=== PATIENT | male | born 1995 | race Caucasian/White ===

== ENCOUNTER 2020-10-07 00:18 | Emergency (ER) | payer SELFPAY ==
[2020-10-07 00:35] VITALS: BP 159/75; PULSE 58; RESP 14; TEMP 36.2; O2SAT 98; BMI 30.8
--- NOTE | 2020-10-07 00:40 | ED.DENTAL ---
HPI - Dental/Oral General Chief complaint: Dental/Oral Stated complaint: tooth pain Time Seen by Provider: 10/07/20 00:39 Source: patient Mode of arrival: ambulatory Limitations: no limitations History of Present Illness HPI Narrative: patient is a 25-year-old male with no significant past medical history who presents with left sided dental pain and swelling x1 week that got worse today. He states he does not see a doctor regularly. He denies any fevers. he did not try to take any medications to make it better. Related Data Previous Rx's Medication Instructions Recorded amoxicillin-pot clavulanate 1 tab PO Q12H 10 Days #20 tab 10/07/20 [Augmentin] oxycodone-acetaminophen [Percocet] 1 tab PO Q6H PRN #5 tab 10/07/20 Allergies Allergy/AdvReac Type Severity Reaction Status Date / Time No Known Allergies Allergy Verified 10/07/20 00:38 Review of Systems Review of Systems: Yes all other systems are reviewed and are negative Physical Exam Vital Signs: Vital Signs: Last Vital Signs Temp 97.1 F 10/07/20 00:35 Pulse 58 10/07/20 00:35 Resp 14 10/07/20 00:35 BP 159/75 H 10/07/20 00:35 Pulse Ox 98 10/07/20 00:35 Body Mass Index 30.8 Const: General: cooperative, healthy appearing, comfortable and no acute distress Nutritional Appearance: average body habitus Orientation/consciousness: patient oriented x3 HENMT: Head: Yes normal to inspection General nose exam: Normal external nose present Face and sinus: No normal facial exam ( Left lower jaw swelling, slightly TTP, ) Face images: 1. hardened area, swollen Mouth: Normal oral and palatal mucosa present, lip normal, tongue normal, oropharynx normal, moist mucous membranes, No mouth trauma, no muffled voice and no trismus Teeth and gingiva: dentition normal and gingiva abnormal (lower left side into cheek/jaw) edematous Throat: Yes posterior oropharynx normal, Yes tonsils normal and Yes uvula midline Skin: General skin exam: no rashes or lesions noted Neuro: General: patient oriented x3 Course Course Course Narrative: mouth infection, will give 1st dose of antibiotics now Discharge Plan Discharge Clinical Impression: Gingival abscess Patient Disposition: Home, Self-Care Instructions: Gingivostomatitis (ED) Additional Instructions: as discussed, please be sure to do warm salt water rinses in your my several times daily. Please also take the antibiotic I have prescribed for you to clear up the infection, you may also take the pain medication as needed, just be sure not to drink alcohol or drive a motor vehicle when you are taking the medication. Please be sure to follow-up with a dentist. is important to see a dentist twice annually to maintain good dentition. Prescriptions: New oxycodone-acetaminophen [Percocet] 5-325 mg tablet 1 tab PO Q6H PRN (Reason: pain) Qty: 5 RF: 0 amoxicillin-pot clavulanate [Augmentin] 875-125 mg tablet 1 tab PO Q12H 10 Days Qty: 20 RF: 0
== END 2020-10-07 01:30 | disposition home or self-care (01) ==
PROVIDERS: Emergency Provider Student in an Organized Health Care Education/Training Program
DX: K05.319 Chronic periodontitis, localized, unspecified severity (principal)
CPT/HCPCS: 99283

== ENCOUNTER 2022-05-26 09:34 | Emergency (ER) | payer OTHER, SELFPAY ==
--- NOTE | ~2022-05-26 | XR_ITS ---
EXAMINATION: XR LUMBOSACRAL SPINE CLINICAL INFORMATION: Back pain COMPARISON: None TECHNIQUE: Three views of the lumbosacral spine. FINDINGS: 5 nonrib-bearing lumbar type vertebral bodies. Mild retrolisthesis of L5 on S1. Vertebral body heights are maintained. No acute fracture. Disc spaces are maintained.. SI joints are intact. No abnormal soft tissue calcification. XR/XR lumbar spine 2-3V IMPRESSION: Mild retrolisthesis of L5 on S1. No evidence of acute osseous abnormality.
[2022-05-26 09:41] VITALS: BP 130/70; PULSE 70; O2SAT 98
[2022-05-26 09:44] VITALS: BP 130/72; PULSE 70; RESP 16; TEMP 36.6; O2SAT 98; BMI 31.5
--- NOTE | 2022-05-26 09:46 | ED_ITS ---
HPI - Back Pain/Injury General Chief Complaint: Back Pain/Injury Stated Complaint: Low back pain per EMS Time Seen by Provider: 05/26/22 09:40 Source: patient and EMS Mode of arrival: EMS Limitations: no limitations History of Present Illness HPI Narrative: back pain X 24 ,states [place] Yesterday had cough spell since then c/o lower back pain,no radiation to legs MD elicited complaint: back pain Pertinent past history: other (back pain) Onset (ago): day(s) (1) Timing: constant Severity: moderate Similar Symptoms Previously: No Quality: aching Location: lumbar spine Radiation: none Exacerbating factors: none Relieving factors: none Related Data Previous Rx's Medication Instructions Recorded amoxicillin 875 mg-potassium 1 tab PO Q12H 10 days #20 tabs 10/07/20 clavulanate 125 mg tablet (Augmentin) oxycodone-acetaminophen 5 mg-325 1 tab PO Q6H PRN pain #5 tabs 10/07/20 mg tablet (Percocet) naproxen 500 mg tablet (Naprosyn) 500 mg PO BID PRN PAIN #20 tabs 05/26/22 oxycodone 5 mg capsule 5 mg PO Q8H PRN pain #12 caps 05/26/22 Allergies Allergy/AdvReac Type Severity Reaction Status Date / Time No Known Allergies Allergy Verified 10/07/20 00:38 Review of Systems Constitutional: Constitutional: Reports no additional constitutional complaints ENT: Reports system reviewed and no additional complaints, except as documented Gastrointestinal: Gastrointestinal: Reports no additional gastrointestinal complaints Hematologic/Lymphatic: Hematologic/Lymphatic: Reports no additional hematologic/lymphatic complaints PMFSH Past Medical History [facility] Narrative: none Social History Social History Smoked in Last 30 Days: No Use of substances other than those prescribed or required for medical reasons: No Advance Directives: No Advance Directives Information Provided: No Physical Exam Vital Signs: Vital Signs: Last Vital Signs Temp 98.5 F 05/26/22 11:02 Pulse 71 05/26/22 11:02 Resp 16 05/26/22 11:02 BP 124/74 05/26/22 11:02 Pulse Ox 100 05/26/22 11:02 O2 Del Method 05/26/22 11:02 BMI result Body Mass Index 31.5 Const: General: cooperative Nutritional Appearance: well nourished Orientation/consciousness: oriented to time Limitations: no limitations HEENT: Head: Yes normal to inspection Ears: hearing grossly normal b ilaterally Face and sinus: Yes normal facial exam Mouth: Normal oral and palatal mucosa present Neck: Neck: Yes normal visual inspection Chest: Chest palpation & inspection: normal inspection of the chest Resp: Effort & Inspection: normal respiratory effort and able to speak in complete sentences Auscultation: clear to auscultation bilaterally Cardio: Palpation: normal PMI Rate: regular rate Rhythm: regular rhythm GI: Inspection: Yes normal to inspection Palpation (GI): Soft to palpation, not firm, nontender and no guarding Back/Spine/Pelvis: Other: Tenderness in the LS spine present Skin: General skin exam: no rashes or lesions noted, elasticity normal and turgor normal Lesions: no lesions Rashes: no rashes Neuro: General: oriented to time Course Reevaluation(s) Reevaluation #1: doing better able to ambulate Time: 12:20 Medications Administered Discontinued Medications Generic Name Dose Route Start Last Admin Trade Name Abe PRN Reason Stop Dose Admin Diazepam 5 mg 05/26/22 10:50 05/26/22 10:59 Diazepam 2 Mg Tablet PO 05/26/22 10:51 5 mg ONCE ONE Administration Hydromorphone HCl 0.5 mg 05/26/22 09:43 05/26/22 09:57 Hydromorphone Hcl 0.5 Mg/0.5 Ml Syringe IVPUSH 05/26/22 09:44 0.5 mg ONCE ONE Administration Protocol Hydromorphone HCl 0.5 mg 05/26/22 12:04 05/26/22 12:19 Hydromorphone Hcl 0.5 Mg/0.5 Ml Syringe IVPUSH 05/26/22 12:05 0.5 mg ONCE ONE Administration Protocol Ketorolac Tromethamine 30 mg 05/26/22 09:44 05/26/22 09:56 Ketorolac Tromethamine 30 Mg/Ml Vial IVPUSH 05/26/22 09:45 30 mg ONCE ONE Administration Lidocaine 1 patch 05/26/22 10:50 05/26/22 11:00 Lidocaine 4 % Patch Adh..Patch TRANSDERMA 05/26/22 10:51 1 patch ONCE ONE Administration Protocol Medical Decision Making Medical Decision Making MDM Narrative: Patient presented with 24 hours history of lower back pain neurologically intact will provide the pain medicine will do labs x-ray and reassess Differential Diagnosis Differential Diagnoses: The differential diagnosis associated with the pre sentation includes Admission/Observation Consideration of admission/observation: Escalation of care including admission/observation considered Lab Data [facility] Lab Attestation statement: I reviewed the patient's lab results. 05/26/22 09:53 05/26/22 09:53 Labs: Lab Results 05/26/22 05/26/22 Range/Units 09:53 09:53 WBC 10.3 (4.8-10.8) X10*3/uL RBC 4.42 L (4.60-5.80) X10*6/uL Hgb 13.6 L (14.0-18.0) g/dl Hct 40.2 L (42.0-52.0) % MCV 91.0 (80.0-98.0) fL MCH 30.8 (27.0-33.0) pg MCHC 33.8 (31.0-36.0) g/dl RDW 12.0 (11.0-16.0) % Plt Count 233 (160-400) X10*3/uL MPV 9.7 (9.4-12.4) fL Immature Gran % (Auto) 0.2 (0.0-0.4) % Neut % (Auto) 66.6 (45-73) % Lymph % (Auto) 24.6 (20-40) % [place] % (Auto) 8.0 (2-11) % Eos % (Auto) 0.4 (0-4) % Baso % (Auto) 0.2 (0-2) % Lymph # (Auto) 2.5 (1.2-4.9) X10*3/uL [place] # (Auto) 0.8 (0.1-1.2) X10*3/uL Eos # (Auto) 0.0 (0.0-0.4) X10*3/uL Baso # (Auto) 0.0 (0.0-0.2) X10*3/uL Abs Immat Gran (auto) 0.02 (0.00-0.03) X10*3/uL Absolute Neuts (auto) 6.9 (2.0-8.3) x10*3/uL Absolute Nucleated RBC 0.000 (0.0-0.012) X10*3/uL Nucleated RBC % (auto) 0.0 (0.0-0.2) /100WBC Sodium 140 (135-145) mmol/L Potassium 3.6 (3.3-5.1) mmol/L Chloride 106 (96-108) mmol/L Carbon Dioxide 22 (22-29) mmol/L Anion Gap 16 (12-20) BUN 11 (9-16) mg/dL Creatinine 0.78 (0.5-1.4) mg/dL Estim Creat Clear Calc 168.4 Estimated GFR > 60 Random Glucose 81 (60-115) mg/dL Calcium 9.2 (8.4-10.2) mg/dL Total Bilirubin 1.9 H (0.0-1.0) mg/dL AST 19 (5-37) U/L ALT 25 (0-40) U/L Alkaline Phosphatase 40 (39-117) U/L Total Protein 7.0 (6.5-8.0) g/dL Albumin 4.2 (3.5-5.0) g/dL Independent Interpretation I performed an independent interpretation of an: Plain X-Ray Interpretation: no fx Radiology Impression Discussion of test interpretation with radiology: I have reviewed the radiologist's reading. Radiologist Impression: EXAMINATION: XR LUMBOSACRAL SPINE CLINICAL INFORMATION: Back pain COMPARISON: None TECHNIQUE: Three views of the lumbosacral spine. FINDINGS: 5 nonrib-bearing lumbar type vertebral bodies. Mild retrolisthesis of L5 on S1. Vertebral body heights are maintained. No acute fracture. Disc spaces are maintained.. SI joints are intact. No abnormal soft tissue calcification. XR/XR lumbar spine 2-3V IMPRESSION: Mild retrolisthesis of L5 on S1. No evidence of acute osseous abnormality. Dictated By: Javad Erickson MD Signed By: <Electronically signed by Javad Erickson MD in OV> 05/26/22 2711 Independent Historian Clinical information obtained from an independent historian. History obtained from or confirmed by: Other (mother) Discharge Plan Discharge Clinical Impression: Strain of lumbar region, Back pain Patient Disposition: Home, Self-Care Instructions: Acute Low Back Pain (ED), Back Pain (ED), Lower Back Exercises (ED) Additional Instructions: Return to the emergency room if you worse severe weakness or numbness in the legs follow-up with your primary care physician, if you now one call [place] [facility] [phone]. Prescriptions: New oxycodone 5 mg capsule 5 mg PO Q8H PRN (Reason: pain) Qty: 12 0RF Rx Instructions: Partial Fill upon patient request. naproxen [Naprosyn] 500 mg tablet 500 mg PO BID PRN (Reason: PAIN) Qty: 20 0RF No Action oxycodone-acetaminophen [Percocet] 5-325 mg tablet 1 tab PO Q6H PRN (Reason: pain) Qty: 5 0RF amoxicillin-pot clavulanate [Augmentin] 875-125 mg tablet 1 tab PO Q12H 10 Days Qty: 20 0RF Stand Alone Forms: Work/School Release
[2022-05-26] MEDS: Ketorolac Tromethamine 30 MG/ML VIAL IVPUSH (09:56)
[2022-05-26] MEDS: HYDROmorphone HCl 0.5 MG/0.5 ML SYRINGE IVPUSH ×2 (09:57→12:19)
[2022-05-26 09:58] LABS: MANUAL DIFF FLAG NO
[2022-05-26 10:01] LABS: Basophils Percent Auto 0.2 % (0-2); Eosinophils Percent Auto 0.4 % (0-4); Hematocrit 40.2 % (42.0-52.0); Hemoglobin 13.6 g/dl (14.0-18.0); Imm Gran Abs Auto 0.02 X10*3/uL (0.00-0.03); Imm Gran Pct Auto 0.2 % (0.0-0.4); Lymphocytes Absolute Auto 2.5 X10*3/uL (1.2-4.9); Lymphocytes Percent Auto 24.6 % (20-40); Mean Corpuscular HGB Conc 33.8 g/dl (31.0-36.0); Mean Corpuscular Hemoglobin 30.8 pg (27.0-33.0); Mean Platelet Volume 9.7 fL (9.4-12.4); Monocytes Absolute Auto 0.8 X10*3/uL (0.1-1.2); Neutrophils Absolute Auto 6.9 x10*3/uL (2.0-8.3); Neutrophils Percent Auto 66.6 % (45-73); Platelet Count 233 X10*3/uL (160-400); Red Blood Count 4.42 X10*6/uL (4.60-5.80); White Blood Count 10.3 X10*3/uL (4.8-10.8)
[2022-05-26 10:17] LABS: Alanine Aminotransferase 25 U/L (0-40); Albumin Level 4.2 g/dL (3.5-5.0); Alkaline Phosphatase 40 U/L (39-117); Anion Gap 16 (12-20); Aspartate Amino Transferase 19 U/L (5-37); Bilirubin Total 1.9 mg/dL (0.0-1.0); Blood Urea Nitrogen 11 mg/dL (9-16); Calcium 9.2 mg/dL (8.4-10.2); Carbon Dioxide 22 mmol/L (22-29); Chloride 106 mmol/L (96-108); Creatinine Clr Calc Pharmacy 168.4; Estimated Glomerular Filt Rate > 60; Glucose Random 81 mg/dL (60-115); Potassium 3.6 mmol/L (3.3-5.1); Sodium 140 mmol/L (135-145)
[2022-05-26] MEDS: diazePAM 2 MG TABLET 5 MG PO (10:59)
[2022-05-26] MEDS: Lidocaine 4 % Patch ADH..PATCH 1 PATCH TRANSDERMA (11:00)
[2022-05-26 11:02] VITALS: BP 124/74; PULSE 71; RESP 16; TEMP 36.9; O2SAT 100
--- NOTE | 2022-05-26 11:55 | PC.NURSE ---
PT APPEARS TO BE BETTER AFTER MEDICATIONS, ABLE TO SLOWLY CHANGE POSITIONS INDEPENDENTLY WITH NO CHANGES IN VS. STATES HE IS MOVING BETTER THEN WHEN HE CAME IN.
== END 2022-05-26 12:29 | disposition home or self-care (01) ==
PROVIDERS: Emergency Provider Emergency Medicine
DX: S39.012A Strain of muscle, fascia and tendon of lower back, initial encounter (principal); X50.9XXA Other and unspecified overexertion or strenuous movements or postures, initial encounter; R05.9 Cough, unspecified; Y93.9 Activity, unspecified; Y92.019 Unspecified place in single-family (private) house as the place of occurrence of the external cause; Y99.9 Unspecified external cause status
CPT/HCPCS: 36415; 72100; 80053; 85025; 96374; 96375; 96376; 99284; J1170; J1885

== ENCOUNTER 2022-06-08 16:08 | Emergency (ER) | payer MEDICAID, SELFPAY ==
--- NOTE | ~2022-06-08 | CT_ITS ---
EXAMINATION: CT ABDOMEN AND PELVIS WITHOUT CONTRAST CLINICAL INFORMATION: Left flank pain. Left groin pain COMPARISON: None TECHNIQUE: Multidetector volumetric imaging was performed from the superior aspect of the liver through the pubic symphysis. Sagittal and coronal reformatted images were obtained on the technologist's workstation. This CT examination was performed using dose optimization techniques as appropriate, variously including the following: *Automated exposure control *Adjustment of mA and/or kV according to patient size (this includes techniques or standardized protocols for targeted exams where dose is matched to indication/reason for exam; i.e. extremities or head) *Use of iterative reconstruction technique DLP: 630 mGy-cm FINDINGS: LUNG BASES: No suspicious abnormality in the visualized lower chest LIVER, GALLBLADDER, AND BILIARY TREE: The liver contour is smooth. There is a probable 1.2 cm round low attenuating lesion in the region of hepatic segment 5. In the absence of a known primary malignancy or underlying chronic liver disease this does not require any further evaluation. The gallbladder is contracted. There is no opaque gallstone or biliary dilation. PANCREAS: The pancreas is top normal without localized. Stranding or ductal dilation SPLEEN: Normal ADRENAL GLANDS: Normal KIDNEYS AND URETERS: There is no dilation of the urinary collecting system on either side. No suspicious mass. No perinephric stranding. There is no definite opaque urinary calculus. BLADDER: The bladder is nearly empty. No suspicious abnormality. GASTROINTESTINAL TRACT: There is no localized colonic wall thickening. The appendix contains gas. The tip of the appendix is top normal without surrounding stranding or fluid No significant small bowel dilation. Some of the jejunal loops are top normal. No suspicious abnormality of the stomach which is distended with food. ABDOMINAL WALL: No significant hernia is appreciated. LYMPH NODES: There are no measurably enlarged abdominal or pelvic lymph nodes. There are a few scattered nonspecific retroperitoneal lymph nodes. No significant free intraperitoneal fluid VASCULAR: There is no abdominal aortic aneurysm. PELVIC VISCERA: No suspicious abnormality OSSEOUS STRUCTURES: No suspicious abnormality CT/CT abdomen pelvis wo IV con IMPRESSION: No etiology for left flank pain demonstrated. Specifically there is no opaque urinary calculus or dilation of the urinary collecting system. Fleischner guidelines were followed.
[2022-06-08 16:25] VITALS: BP 119/59; PULSE 88; RESP 16; TEMP 35.7; O2SAT 98; BMI 32.3
--- NOTE | 2022-06-08 16:25 | ED_ITS ---
HPI - Abdominal Pain General Chief Complaint: Abdominal Pain <Porsha Barnes CNP - Last Filed: 06/08/22 16:33> Stated Complaint: Flank pain <Porsha Barnes CNP - Last Filed: 06/08/22 16:33> Time Seen by Provider: 06/08/22 22:21 <Porsha Barnes CNP - Last Filed: 06/08/22 16:33> Source: patient <Milady Ly MD - Last Filed: 06/08/22 23:10> Mode of arrival: ambulatory <Milady Ly MD - Last Filed: 06/08/22 23:10> History of Present Illness HPI narrative: 27-year-old male who injured his left back a couple of weeks ago comes in with left flank pain that he states was radiating into his groin area but not associated with any fever, chills, nausea, vomiting and denies any urinary symptoms. He does cite family history kidney stones. <Milady Ly MD - Last Filed: 06/08/22 23:10> Related Data Home Medications: Previous Rx's Medication Instructions Recorded amoxicillin 875 mg-potassium 1 tab PO Q12H 10 days #20 tabs 10/07/20 clavulanate 125 mg tablet (Augmentin) oxycodone-acetaminophen 5 mg-325 1 tab PO Q6H PRN pain #5 tabs 10/07/20 mg tablet (Percocet) naproxen 500 mg tablet (Naprosyn) 500 mg PO BID PRN PAIN #20 tabs 05/26/22 oxycodone 5 mg capsule 5 mg PO Q8H PRN pain #12 caps 05/26/22 <Porsha Barnes CNP - Last Filed: 06/08/22 16:33> Allergies/Adverse Reactions: Allergies Allergy/AdvReac Type Severity Reaction Status Date / Time No Known Allergies Allergy Verified 10/07/20 00:38 <Porsha Barnes CNP - Last Filed: 06/08/22 16:33> Review of Systems Review of Systems Pertinent positives and negatives as stated in HPI <Milady Ly MD - Last Filed: 06/08/22 23:10> PMFSH Past Medical History Source: nursing notes reviewed <Milady Ly MD - Last Filed: 06/08/22 23:10> Social History Social History: Social History Advance Directives: No Advance Directives Information Provided: No <Porsha Richards MIGUE Barnes - Last Filed: 06/08/22 16:33> Physical Exam ED Vital Signs: Vital Signs - 24 hr 06/08/22 16:25 06/08/22 21:32 Temperature 96.2 F L 97.5 F Pulse Rate 88 65 Respiratory Rate 16 18 Blood Pressure 119/59 L 114/55 L Pulse Oximetry 98 98 Oxygen Delivery Method Room Air Room Air BMI result Body Mass Index 32.3 <Porsha BrownMIGUE chapman - Last Filed: 06/08/22 16:33> Vital Signs - 24 hr 06/08/22 16:25 06/08/22 21:32 Temperature 96.2 F L 97.5 F Pulse Rate 88 65 Respiratory Rate 16 18 Blood Pressure 119/59 L 114/55 L Pulse Oximetry 98 98 Oxygen Delivery Method Room Air Room Air BMI result Body Mass Index 32.3 VITAL SIGNS: Reviewed. GENERAL: Well developed, well nourished, in no acute distress. HEAD: Normocephalic/atraumatic EYES: PERRLA, EOMI LUNGS: Normal breath sounds. No adventitious sounds or accessory muscle use. SpO2<98> CARDIOVASCULAR: Regular rate and rhythm without noted murmurs ABDOMEN: Soft, non-tender, non-distended with bowel sounds, no CVA tenderness MUSCULOSKELETAL: No tenderness, deformities, or effusions noted on gross inspection. EXTREMITIES: No cyanosis, clubbing or edema. SKIN: Inspection of the skin reveals no rashes NEUROLOGIC: Alert and oriented x 4. Strength and sensation to light touch were grossly intact x 4. <Milady Ly MD - Last Filed: 06/08/22 23:10> Course Course Course Narrative: This is an RME: Additional HPI, ROS, PE not included below will be deferred to primary provider. Patient is a 27-year-old male presents emergency department for evaluation of left flank/ back pain. States 05/26 he was in ED for back pain, had an XR obtained that he states was normal, received RX for naproxen oxycodone this helped initially. Went to urgent care 06/02 because he was experiencing groin and testicular pain and pain to L flank/ ABD, he was advised to come to the ED given family history of renal calculi. He thought he would wait this out at home and see how things were going. However, as of yesterday pain seemed more for severe, it is felt to the left flank wrapping around his side, and in the left lower quadrant ABD. Denies dysuria, however when he is urinating he does feel a pressure within the groin. Denies hematuria, nausea, vomiting, fevers, chills. Plan: Labs, urinalysis, CT abdomen and pelvis <Porsha Barnes CNP - Last Filed: 06/08/22 16:33> Medical Decision Making Medical Decision Making MDM Narrative: 27-year-old male with history and clinical presentation after review of all investigations my interpretation is this is musculoskeletal in nature, patient was continued on analgesics and a lidocaine patch here in the emergency room, given results and discharged home in stable condition with regimen of analgesics and instructions follow-up with primary care provider. <Milady Ly MD - Last Filed: 06/08/22 23:10> Differential Diagnosis Please see the discussion above <Milady Ly MD - Last Filed: 06/08/22 23:10> Lab Data Please see the discussion above <Milady yL MD - Last Filed: 06/08/22 23:10> Result Diagrams: 06/08/22 16:58 06/08/22 16:58 <Porsha Barnes CNP - Last Filed: 06/08/22 16:33> Labs: Lab Results 06/08/22 06/08/22 06/08/22 Range/Units 16:58 16:58 16:58 WBC 8.3 (4.8-10.8) X10*3/uL RBC 4.32 L (4.60-5.80) X10*6/uL Hgb 13.3 L (14.0-18.0) g/dl Hct 39.2 L (42.0-52.0) % MCV 90.7 (80.0-98.0) fL MCH 30.8 (27.0-33.0) pg MCHC 33.9 (31.0-36.0) g/dl RDW 12.3 (11.0-16.0) % Plt Count 240 (160-400) X10*3/uL MPV 9.9 (9.4-12.4) fL Immature Gran % (Auto) 0.2 (0.0-0.4) % Neut % (Auto) 47.5 (45-73) % Lymph % (Auto) 41.1 H (20-40) % [place] % (Auto) 9.9 (2-11) % Eos % (Auto) 1.1 (0-4) % Baso % (Auto) 0.2 (0-2) % Lymph # (Auto) 3.4 (1.2-4.9) X10*3/uL [place] # (Auto) 0.8 (0.1-1.2) X10*3/uL Eos # (Auto) 0.1 (0.0-0.4) X10*3/uL Baso # (Auto) 0.0 (0.0-0.2) X10*3/uL Abs Immat Gran (auto) 0.02 (0.00-0.03) X10*3/uL Absolute Neuts (auto) 4.0 (2.0-8.3) x10*3/uL Absolute Nucleated RBC 0.000 (0.0-0.012) X10*3/uL Nucleated RBC % (auto) 0.0 (0.0-0.2) /100WBC Sodium 139 (135-145) mmol/L Potassium 4.4 D (3.3-5.1) mmol/L Chloride 105 (96-108) mmol/L Carbon Dioxide 28 (22-29) mmol/L Anion Gap 10 L (12-20) BUN 15 (9-16) mg/dL Creatinine 0.76 (0.5-1.4) mg/dL Estim Creat Clear Calc 174.7 Estimated GFR > 60 Random Glucose 93 (60-115) mg/dL Calcium 9.6 (8.4-10.2) mg/dL Total Bilirubin 0.5 (0.0-1.0) mg/dL AST 15 (5-37) U/L ALT 23 (0-40) U/L Alkaline Phosphatase 39 (39-117) U/L Total Protein 7.3 (6.5-8.0) g/dL Albumin 4.4 (3.5-5.0) g/dL Urine Color Yellow Urine Appearance Clear Urine pH 5.5 (5.0-9.0) Ur Specific [place] 1.025 (1.005-1.025) Urine Protein Negative (Neg-Trace) mg/dL Urine Glucose (UA) Negative (Negative) mg/dL Urine Ketones Negative (Negative) mg/dL Urine Blood Negative (Negative) Urine Nitrite Negative (Negative) Ur Leukocyte Esterase Negative (Negative) <Porsha Barnes, DIRECTOR OF [employer] - Last Filed: 06/08/22 16:33> Lab Results 06/08/22 06/08/22 06/08/22 Range/Units 16:58 16:58 16:58 WBC 8.3 (4.8-10.8) X10*3/uL RBC 4.32 L (4.60-5.80) X10*6/uL Hgb 13.3 L (14.0-18.0) g/dl Hct 39.2 L (42.0-52.0) % MCV 90.7 (80.0-98.0) fL MCH 30.8 (27.0-33.0) pg MCHC 33.9 (31.0-36.0) g/dl RDW 12.3 (11.0-16.0) % Plt Count 240 (160-400) X10*3/uL MPV 9.9 (9.4-12.4) fL Immature Gran % (Auto) 0.2 (0.0-0.4) % Neut % (Auto) 47.5 (45-73) % Lymph % (Auto) 41.1 H (20-40) % [place] % (Auto) 9.9 (2-11) % Eos % (Auto) 1.1 (0-4) % Baso % (Auto) 0.2 (0-2) % Lymph # (Auto) 3.4 (1.2-4.9) X10*3/uL [place] # (Auto) 0.8 (0.1-1.2) X10*3/uL Eos # (Auto) 0.1 (0.0-0.4) X10*3/uL Baso # (Auto) 0.0 (0.0-0.2) X10*3/uL Abs Immat Gran (auto) 0.02 (0.00-0.03) X10*3/uL Absolute Neuts (auto) 4.0 (2.0-8.3) x10*3/uL Absolute Nucleated RBC 0.000 (0.0-0.012) X10*3/uL Nucleated RBC % (auto) 0.0 (0.0-0.2) /100WBC Sodium 139 (135-145) mmol/L Potassium 4.4 D (3.3-5.1) mmol/L Chloride 105 (96-108) mmol/L Carbon Dioxide 28 (22-29) mmol/L Anion Gap 10 L (12-20) BUN 15 (9-16) mg/dL Creatinine 0.76 (0.5-1.4) mg/dL Estim Creat Clear Calc 174.7 Estimated GFR > 60 Random Glucose 93 (60-115) mg/dL Calcium 9.6 (8.4-10.2) mg/dL Total Bilirubin 0.5 (0.0-1.0) mg/dL AST 15 (5-37) U/L ALT 23 (0-40) U/L Alkaline Phosphatase 39 (39-117) U/L Total Protein 7.3 (6.5-8.0) g/dL Albumin 4.4 (3.5-5.0) g/dL Urine Color Yellow Urine Appearance Clear Urine pH 5.5 (5.0-9.0) Ur Specific [place] 1.025 (1.005-1.025) Urine Protein Negative (Neg-Trace) mg/dL Urine Glucose (UA) Negative (Negative) mg/dL Urine Ketones Negative (Negative) mg/dL Urine Blood Negative (Negative) Urine Nitrite Negative (Negative) Ur Leukocyte Esterase Negative (Negative) <Milady Ly MD - Last Filed: 06/08/22 23:10> Radiology Impression Radiologist Impression: My interpretation is in agreement with radiology's impression of the imagi ng study. <Milady Ly MD - Last Filed: 06/08/22 23:10> External Record Review External record reviewed: Outpatient record and Prior outpatient labs <Milady Ly MD - Last Fi led: 06/08/22 23:10> Discharge Plan Discharge Clinical Impression: Back strain <Porsha Barnes CNP - Last Filed: 06/08/22 16:33> Patient Disposition: Home, Self-Care <Porshajessica Barnes CNP - Last Filed: 06/08/22 16:33> Instructions: Back Pain (ED), Lower Back Exercises (ED), Muscle Strain (ED) <Porsha Barnes CNP - Last Filed: 06/08/22 16:33> Additional Instructions: 1. Tylenol 1000 mg, orally, every 6 hours as needed for pain control. Do not exceed 4000 mg within 24 hours. 2. Ibuprofen 400 mg, orally with milk or food, every 6 hours as needed for pain control. I highly recommend that you take this with the Tylenol for improved symptom relief. 3. Lidocaine patch apply to area of maximal tenderness as directed on the outside packaging. 4. Please follow-up with your primary care provider for re-evaluation further discussion regarding management that may include physical therapy. Return to the ER for any worsening or new symptoms. <Porsha Barnes CNP - Last Filed: 06/08/22 16:33> Prescriptions: No Action oxycodone-acetaminophen [Percocet] 5-325 mg tablet 1 tab PO Q6H PRN (Reason: pain) Qty: 5 0RF amoxicillin-pot clavulanate [Augmentin] 875-125 mg tablet 1 tab PO Q12H 10 Days Qty: 20 0RF oxycodone 5 mg capsule 5 mg PO Q8H PRN (Reason: pain) Qty: 12 0RF Rx Instructions: Partial Fill upon patient request. naproxen [Naprosyn] 500 mg tablet 500 mg PO BID PRN (Reason: PAIN) Qty: 20 0RF <Porsha Barnes CNP - Last Filed: 06/08/22 16:33>
[2022-06-08 17:07] LABS: MANUAL DIFF FLAG NO
[2022-06-08 17:10] LABS: Appearance Urine Clear; Color Urine Yellow; Glucose Urine UA Negative (Negative); Leukocyte Esterase Urine Negative (Negative); Nitrite Urine Negative (Negative); PH 5.5 (5.0-9.0); Specific Gravity - Urine 1.025 (1.005-1.025); Urine Blood Negative (Negative); Urine Ketones Negative (Negative); Urine Protein Negative (Neg-Trace)
[2022-06-08 17:15] LABS: Basophils Percent Auto 0.2 % (0-2); Eosinophils Absolute Auto 0.1 X10*3/uL (0.0-0.4); Eosinophils Percent Auto 1.1 % (0-4); Hematocrit 39.2 % (42.0-52.0); Hemoglobin 13.3 g/dl (14.0-18.0); Imm Gran Abs Auto 0.02 X10*3/uL (0.00-0.03); Imm Gran Pct Auto 0.2 % (0.0-0.4); Lymphocytes Absolute Auto 3.4 X10*3/uL (1.2-4.9); Lymphocytes Percent Auto 41.1 % (20-40); Mean Corpuscular HGB Conc 33.9 g/dl (31.0-36.0); Mean Corpuscular Hemoglobin 30.8 pg (27.0-33.0); Mean Corpuscular Volume 90.7 fL (80.0-98.0); Mean Platelet Volume 9.9 fL (9.4-12.4); Monocytes Absolute Auto 0.8 X10*3/uL (0.1-1.2); Monocytes Percent Auto 9.9 % (2-11); Neutrophils Percent Auto 47.5 % (45-73); Platelet Count 240 X10*3/uL (160-400); Red Blood Count 4.32 X10*6/uL (4.60-5.80); Red Cell Distribution Width 12.3 % (11.0-16.0); White Blood Count 8.3 X10*3/uL (4.8-10.8)
[2022-06-08 17:41] LABS: Alanine Aminotransferase 23 U/L (0-40); Albumin Level 4.4 g/dL (3.5-5.0); Alkaline Phosphatase 39 U/L (39-117); Anion Gap 10 (12-20); Aspartate Amino Transferase 15 U/L (5-37); Bilirubin Total 0.5 mg/dL (0.0-1.0); Blood Urea Nitrogen 15 mg/dL (9-16); Calcium 9.6 mg/dL (8.4-10.2); Carbon Dioxide 28 mmol/L (22-29); Chloride 105 mmol/L (96-108); Creatinine Clr Calc Pharmacy 174.7; Estimated Glomerular Filt Rate > 60; Glucose Random 93 mg/dL (60-115); Potassium 4.4 mmol/L (3.3-5.1); Sodium 139 mmol/L (135-145); Total Protein 7.3 g/dL (6.5-8.0)
[2022-06-08 21:32] VITALS: BP 114/55; PULSE 65; RESP 18; TEMP 36.4; O2SAT 98
[2022-06-08] MEDS: Ibuprofen 800 MG TABLET PO (23:20)
[2022-06-08] MEDS: Lidocaine 4 % Patch ADH..PATCH 1 PATCH TRANSDERMA (23:20)
[2022-06-08] MEDS: Acetaminophen 325 MG TABLET 975 MG PO (23:20)
== END 2022-06-08 23:31 | disposition home or self-care (01) ==
PROVIDERS: Nurse Practitioner Family; Emergency Provider Student in an Organized Health Care Education/Training Program
DX: R10.9 Unspecified abdominal pain (principal); M54.50 Low back pain, unspecified; Z79.899 Other long term (current) drug therapy
CPT/HCPCS: 36415; 74176; 80053; 81003; 85025; 99284

== ENCOUNTER 2022-12-03 12:20 | Outpatient (AMB) | payer OTHER, SELFPAY ==
--- NOTE | 2022-12-03 12:37 | MHC.OFFWIV ---
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 pt states he noticed it at while back but has become very sensitive. Patient Tobacco Use Status: Never used Tobacco Allergies No Known Allergies Allergy (Verified 12/03/22 12:40) Do you need a note to return to daycare/school/sports/work: No HPI INSTRUMENT TESTER LT Foot concern HPI Details 27-year-old male presents to the office for a sick visit. Patient is complaining of swelling under the foot. Occasionally painful. [facility] Social History Patient Tobacco Use Status: Never used Tobacco Physical Exam Vital Signs: Last Vital Signs Pulse 74 12/03/22 12:38 BP 110/60 12/03/22 12:38 Pulse Ox 98 12/03/22 12:38 Oxygen Delivery Method Room Air 12/03/22 12:38 Extrem Other: Left foot: Callus under the head of the 1st metatarsal. Mildly tender to touch. Assessment & Plan Assessment & Plan (1) Plantar wart, left foot: Code(s): B07.0 - Plantar wart Plan: The wart needs excision. Patient was given a list of podiatrists and a referral was made. Orders: Referrals Podiatry Referral B07.0 - Plantar wart Coding Level of Care Code Est Pt Level 3 (19387) Diagnoses Plantar wart, left foot B07.0
[2022-12-03 12:38] VITALS: BP 110/60; PULSE 74; O2SAT 98
== END 2022-12-03 13:59 | disposition home or self-care (01) ==
PROVIDERS: Visit Provider Internal Medicine
DX: B07.0 Plantar wart (principal)
CPT/HCPCS: 99213